=== PATIENT | female | born 1980 | race Caucasian/White ===

== ENCOUNTER 2020-08-08 15:28 | Emergency (ER) | payer OTHER ==
[~2020-08-08] VITALS: Ht 165.1 cm; Wt 93.0 kg
[2020-08-08 15:50] VITALS: BP_SYST 125
--- NOTE | 2020-08-08 15:50 | NUR ---
Patient to ER bed 06 to gown for evaluation. Side rails up. Report given to JARRETT AGUILAR.
--- NOTE | 2020-08-08 15:52 | NUR ---
Patient arrived in the ED with c/o laceration on the left index finger that happened today. Denied any chest pain or shortness of breath. Denied any fevers, chills, nausea or vomiting. Patient is alert and oriented x4, respirations even and unlabored, speaking in full sentences, and ambulating with a steady gait. VSS, pain level 7/10. Informed of the approximate wait time. Instructed to notify ED staff for any changes in condition or worsening of symptoms while waiting to be seen by an ED provider. Patient verbalized understanding.
--- NOTE | 2020-08-08 15:55 | NUR ---
ER Dr. Tyler at bedside examining patient.
[2020-08-08] MEDS ORDERED: DIPH-TET-PERTUS Vaccine 0.5 ML VIAL (ADACEL) I.M. ONE (16:15)
--- NOTE | 2020-08-08 16:16 | NUR ---
Note toriekimi in EDM - 08/08/20 at 1648 by [email or web address] Administered TDaP IM as ordered by Dr. Raymond. Patient tolerated the medications well. See eMAR for details.
[2020-08-08 16:47] VITALS: BP_SYST 125
--- NOTE | 2020-08-08 16:47 | NUR ---
Patient given written and verbal discharge instructions and verbalizes understanding. ER MD discussed with patient the results and treatment provided. Patient in stable condition. ID arm band removed. No Rx of given. Patient educated on pain management and to follow up with PMD. Pain Scale 0/10. Opportunity for questions provided and answered. Medication side effect fact sheet provided.
== END 2020-08-08 16:47 | disposition home or self-care (01) ==
LOC: SED 15:28
DX: S61.211A Laceration without foreign body of left index finger without damage to nail, initial encounter (principal); Z88.8 Allergy status to other drugs, medicaments and biological substances; W26.8XXA Contact with other sharp object(s), not elsewhere classified, initial encounter; Y93.89 Activity, other specified; Y92.89 Other specified places as the place of occurrence of the external cause; Y99.8 Other external cause status
CPT/HCPCS: 99283